=== PATIENT | male | born 1930 ===

== ENCOUNTER 2017-01-14 09:18 | Day surgery (SDC) | payer OTHER ==
[~2017-01-14 09:18] MED LIST: BACITRACIN ZINC 14.2 GM OINTTUBE TP ONE; BALANCED SALT IRRIG SOLN 15 ML OPHT.BTL ONE; LIDO/EPI 1% **Not for Epidural 20 ML MDV ONE; METHYLENE BLUE 0.5% 50 MG/10 ML AMP ONE; MINERAL OIL 10 ML VIAL ONE; PETROLAT,WHT/MIN OIL/SOD CHL 3.5 GM OPHT.OINT ONE
[2017-01-14] MEDS ORDERED: LR 1,000 ML IV ONE (09:37)
[2017-01-14] MEDS ORDERED: LIDOCAINE 1% 2 ML INJ ID PRN (09:37)
--- NOTE | 2017-01-14 09:48 | PDHPUP ---
History & Physical Update H&P update statement: This history and physical update is based on an assessment of the patient which was completed after admission or registration (within 24 hours), but prior to the surgery/procedure. H&P update: no change in patient's condition since H&P completed
--- NOTE | 2017-01-14 11:22 | PDANEPAE ---
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 for wide local excision and sentinel LN biopsy ANE Past Medical History - Cardiovascular History Hx Hypertension: Yes Hx Arrhythmias: No Hx Chest Pain: No Hx Coronary Artery / Peripheral Vascular Disease: No Hx CHF / Valvular Disease: No Hx Palpitations: No Cardiovascular History Comment: FREQUENT PVC'S - Pulmonary History Hx COPD: No Hx Asthma/Reactive Airway Disease: No Hx Recent Upper Respiratory Infection: No Hx Oxygen in Use at Home: No Hx Sleep Apnea: No Sleep Apnea Screening Result - Last Documented: Positive Pulmonary History Comment: URI JULY 2016 - Neurologic History Hx Cerebrovascular Accident: No Hx Seizures: No Hx Dementia: No - Endocrine History Hx Diabetes: No - Renal History Hx Renal Disorders: Yes Renal History Comment: NOCTURIA - Liver History Hx Hepatic Disorders: No - Neurological & Psychiatric Hx Hx Neurological and Psychiatric Disorders: No - Cancer History Hx Cancer: Yes 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 SKIN ITCHING ON TAPERING DOSE OF STEROID. RT UPPER LEG AND THIGH HAS BEEN ELSEWHERE ON BODY - Chronic Pain History Chronic Pain: No - Surgical History Prior Surgeries: OMAR CATARACTS. OMAR ING HERNIA. COLONOSCOPY. TONSILLECTOMY AND ADENOIDS ANE Review of Systems Review of Systems: No URI or fever x2 weeks. No SOB or CP with stairs. - Exercise capacity METS (RN): 4 METS ANE Patient History - Allergies Allergies/Adverse Reactions: No Known Allergies Allergy (Unverified 12/29/16 13:09) - Home Medications Home medications: home medication list seen and reviewed Home Medications: Aspirin [Aspirin 81mg (*)] 81 mg PO DAILY 12/29/16 [Last Taken 1 Week Ago] Lisinopril [Zestril 20 mg (*)] 20 mg PO DAILY 12/29/16 [Last Taken 01/12/17] predniSONE 15 mg PO DAILY 12/29/16 [Last Taken 01/14/17 07:15] Multivitamins [Multivitamin (*)] 1 each PO DAILY 01/14/17 [Last Taken 01/12/17] - NPO status NPO Status: no food or drink >8 hours NPO Since - Liquids (Date): 01/13/17 NPO Since - Liquids (Time): 18:30 NPO Since - Solids (Date): 01/13/17 NPO Since - Solids (Time): 18:30 - Anes Hx Anes Hx: no prior problems - Smoking Hx Smoking Status: Former smoker Marijuana use: No - Alcohol Use Alcohol Use: Occasionally (1/night) - Family Anes Hx Family Anes Hx: neg - N/A ANE Labs/Vital Signs - Vital Signs Blood Pressure: 154/76 Heart Rate: 49 Respiratory Rate: 16 O2 Sat (%): 96 Height: 167.64 cm Weight: 60.781 kg ANE Physical Exam - Airway Neck exam: FROM Mallampati Score: Class 2 - Pulmonary Pulmonary: clear to auscultation - Cardiovascular Cardiovascular: regular rate and rhythym - ASA Status ASA Status: II ANE Anesthesia Plan Anesthesia Plan: GA w LMA
[2017-01-14] MEDS ORDERED: fentaNYL 100 MCG/2 ML INJ ONE (11:25)
[2017-01-14] MEDS ORDERED: PROPOFOL/EMULSION 500 MG/50 ML BOTTLE IV ONE (11:25)
[2017-01-14] MEDS ORDERED: DEXAMETHASONE 4 MG/ML VIAL ONE (11:26)
[2017-01-14] MEDS ORDERED: LIDOCAINE 2% 5 ML SDV ONE (11:26)
[2017-01-14] MEDS ORDERED: ROCURONIUM 50 MG/5 ML VIAL ONE (11:27)
[2017-01-14] MEDS ORDERED: epHEDrine SULFATE 10 MG/ML SYR ONE (12:08)
--- NOTE | 2017-01-14 13:50 | POSTANESTH ---
Post Anesthetic Evaluation Cardiovascular Status: Normal, Stable Respiratory Status: Normal, Stable Level of Consciousness/Mental Status: Can Participate in Eval, Mildly Sleepy, Arousable Pain Control: Adequate, Prn Tx Ordered Nausea/Vomiting Control: Adequate, Prn Tx Ordered Complications Possibly Related to Anesthesia: None Noted
[2017-01-14] MEDS ORDERED: fentaNYL 100 MCG/2 ML INJ IVP PRN (13:51)
[2017-01-14] MEDS ORDERED: NALOXONE HCL 0.4 MG/ML INJ IVP PRN (13:51)
[2017-01-14] MEDS ORDERED: LR 500 ML IV PRN (13:51)
[2017-01-14] MEDS ORDERED: ACETAMINOPHEN 500 MG TAB PO PRN (13:51)
[2017-01-14] MEDS ORDERED: ONDANSETRON 4 MG/2 ML VIAL IVP PRN (13:51)
[2017-01-14] MEDS ORDERED: ENALAPRILAT DIHYDRATE 1.25 MG/ML VIAL IVP PRN (13:51)
[2017-01-14] MEDS ORDERED: PROMETHAZINE HCL 25 MG/ML INJ IVP PRN (13:51)
--- NOTE | 2017-01-14 14:02 | POSTOPPROG ---
Post Op Note Date of Operation: 01/14/17 Surgeon: Kathy Dai Point Of Care Technician: none Anesthesia: GET(General Endotracheal) Pre-op Diagnosis: Melanoma, forehead Post-op Diagnosis: same Procedure: WLE melanoma forehead with SNLB Findings: WLE 6.3 x 3.5cm, SNLB #1 R parotid #977 SNLB #2 RIGHT level II 563 Inf/Abcess present in the surg proc area at time of surgery?: No Depth: Deep Incisional (Fascial) EBL: Minimal Total fluids administered: 1000 Specimen(s): 1. WLE of primary specimen 6.3 x 3.5 cm with suture at 12 o'clock position 2. RIGHT parotid SNLB #1#977 3. RIGHT level II SNLB #2 #563
[2017-01-14 14:08] VITALS: TEMP 97.5
[2017-01-14] MEDS ORDERED: oxyCODONE IR 5 MG TAB PO PRN (14:10)
[2017-01-14 15:01] VITALS: O2SAT 94
[2017-01-14 15:06] VITALS: BP 138/80; PULSE 59; RESP 13
--- NOTE | 2017-01-14 15:36 | GOP ---
[f rep st] OPERATIVE REPORT DATE OF OPERATION: 01/14/2017 SURGEON: Kathy Dai MD CMO: None. ANESTHESIA: General endotracheal. PREOPERATIVE DIAGNOSIS: T2 forehead melanoma. POSTOPERATIVE DIAGNOSIS: T2 forehead melanoma. PROCEDURE PERFORMED: 1. Wide local excision of malignancy of the forehead, measuring 6.3 x 3.5 cm. 2. [place] lymph node biopsy. 3. Facial nerve monitoring x2 hours. FINDINGS: SPECIMENS: 1. Primary lesion measuring 6.3 x 3.5 cm with 1 cm margins throughout all gross disease. 2. [place] lymph node biopsy. Two were selected, 1 from the right parotid and 1 from a separate s ite through a separate incision in right high level 2. ESTIMATED BLOOD LOSS: Minimal. INDICATIONS: The patient is a pleasant 86-year-old male with significant sun damage and a history o f a T2 melanoma of the forehead. Risks, benefits and alternatives of the above procedure were discussed. We decided to proceed forwa rd. DESCRIPTION OF PROCEDURE: The patient was met in preoperative holding. Informed consent was confir med. The patient was brought to the operating room. He underwent induction of general anesthesia w ith placement of an endotracheal tube without difficulty. He was rotated 180 degrees by the operati ng surgeon, and his position was with slight neck extension on a shoulder roll. The primary lesion was injected with 0.5 mL of methylene blue to complement the prior lymphoscintigraphy that had confi rmed uptake primarily in a single node in the right parotid as well as right high level 2. Addition al lidocaine with epinephrine was then infiltrated throughout the planned surgical sites. After artie suring 1 cm from around the gross diseased tissue of the mid forehead, preauricular and neck incisio ns were also planned. A 2-lead facial nerve monitor was also placed and confirmed to be working roxann ropriately. He was then widely prepped and draped in the standard fashion. The primary site was excised using a 15 blade scalpel to the galea. The 12 o'clock position was mar ked with a silk suture and cautery was used to control any bleeding from the edges of the skin. A m oist gauze was placed. I turned my attention to the sentinel lymph node biopsy. The Neoprobe was used to localize roughly the area of the highest uptake. This was measuring around 300. A preauricular incision with a smal l skin flap using face-lift scissors was then used to reveal the midportion tail of the parotid. Us ing blunt dissection in the direction of the facial nerve, I dissected through the area of the parot id while intermittently checking with the Neoprobe. Eventually, I identified a single lymph node th at measured 977 at its highest peak, and this was excised. There was minimal bleeding. At no point did the facial nerve monitor go off. The wound was then ir rigated with sterile saline and then closed in layers with 4-0 Monocryl in a deep dermal plastic fas hion and then Dermabond. I then turned my attention to the lower neck. A 3 cm incision overlying the SCM was made with a 15 blade scalpel, and then in the same fashion using the Neoprobe to identify the highest uptake, I was able to dissect somewhat deep around the accessory nerve and identified another sentinel lymph node measuring 563. It should be noted that both times, I also checked the bed after removal and the overall registratio n dropped to about 100 in both sites. The neck wound was then irrigated with sterile saline and then closed again in layers with 4-0 Monoc ryl in a deep dermal plastic fashion and then Dermabond on top. At this point, he was cleansed of a ny excess preparatory iodine. Gelfoam was placed into the wound of the forehead. This was intentio ambrosio left open to facilitate additional margins, if needed. Xeroform was then applied and a pressu re dressing with 4x4s and fluffs was then applied on top with Coban. At this point, the patient was turned back to Anesthesia for wake up. At the end of this procedure all sponge and sharp counts were correct. I personally performed all portions of this case. FLUIDS REPLACED: 1 L of crystalloid. /[id number]/MODL
== END 2017-01-14 15:29 | disposition home or self-care (01) ==
LOC: UNDOADMOB 09:18 → F3E 09:18 → FSGY 09:18 → EDSTATUS 10:45 → F3E 10:47 → F1N 10:47 → FSGY 15:29
PROVIDERS: ATTEND Otolaryngology
PROC: 0HB1XZZ Excision of Face Skin, External Approach (ICD-10-PCS; principal; 2017-01-14 10:45)
PROC: 07B10ZX Excision of Right Neck Lymphatic, Open Approach, Diagnostic (ICD-10-PCS; principal; 2017-01-14 10:45)
PROC: 07B00ZX Excision of Head Lymphatic, Open Approach, Diagnostic (ICD-10-PCS; principal; 2017-01-14 10:45)
DX: C43.39 Malignant melanoma of other parts of face (principal)
CPT/HCPCS: 11646; 38500; 78195; A9520; J0690; J1100; J2704; J3010; Q9968